=== PATIENT | male | born 1960 | race Caucasian/White ===

== ENCOUNTER → 2018-06-13 11:15 | Outpatient (CLI) | payer OTHER, SELFPAY ==
[2018-06-14 11:24] LABS: Lyme Ab w Rflx to Lyme Confirm Negative
[2018-06-15 00:25] LABS: Anaplasma phagocytophilum Negative (Negative); B. miyamotoi PCR Negative (Negative); Babesia divergens/MO-1 Negative (Negative); Babesia duncani Negative (Negative); Babesia microti Negative (Negative); Ehrlichia chaffeensis Negative (Negative); Ehrlichia ewingii/canis Negative (Negative); Ehrlichia muris eauclairensis Negative (Negative)
== END ==
PROVIDERS: PCP Nurse Practitioner; Visit Provider Nurse Practitioner
DX: M25.50 Pain in unspecified joint (principal); W57.XXXA Bitten or stung by nonvenomous insect and other nonvenomous arthropods, initial encounter; T14.8XXA Other injury of unspecified body region, initial encounter
CPT/HCPCS: 36415; 86618; 87798

== ENCOUNTER 2018-08-16 11:28 | Outpatient (CLI) | payer OTHER, SELFPAY ==
[2018-08-16 13:01] LABS: Cholesterol 245 mg/dL (50-200); HDL Cholesterol 68 mg/dL (40-60); LDL CHOLESTEROL 161 mg/dL (<100); Triglyceride 202 mg/dL (30-150)
[2018-08-17 10:05] LABS: PSA, Screening 10.4 ng/ml (0-3.5)
== END 2018-08-16 11:48 ==
PROVIDERS: PCP Nurse Practitioner; Visit Provider Nurse Practitioner
DX: I10 Essential (primary) hypertension (principal); R97.20 Elevated prostate specific antigen [PSA]; Z12.5 Encounter for screening for malignant neoplasm of prostate
CPT/HCPCS: 36415; 80061; 83721; 84153

== ENCOUNTER 2018-12-05 02:19 | Outpatient (CLI) | payer OTHER, SELFPAY ==
[2018-12-06 08:47] LABS: PSA, Screening 14.7 ng/ml (0-3.5)
== END 2018-12-05 02:39 ==
PROVIDERS: PCP Nurse Practitioner; Visit Provider Nurse Practitioner Gerontology
DX: R97.20 Elevated prostate specific antigen [PSA] (principal)
CPT/HCPCS: 36415; 84153

== ENCOUNTER 2018-12-25 01:30 | Outpatient (CLI) | payer OTHER, SELFPAY ==
--- NOTE | 2018-12-25 06:44 | DI.US_ITS ---
SYMPTOM/DIAGNOSIS: ELEVATED PSA, RISING PSA, R97.20 ULTRASOUND GUIDED PROSTATE BIOPSY: Sonography was utilized by Dr. Ramos during the performance of an ultrasound guided transrectal prostate biopsy. Please refer to the procedure report for complete details.
--- NOTE | 2018-12-25 08:20 | PROST_PTH ---
PATIENT: Joseph Lr LOC: [facility] U#:[id number] AGE/SX: 58/M ROOM: RE12/25/[address]: Sarahi Branham DNP : 1960 BED: DIS: 12/25/2018 SPEC #: [id number] RECD: 12/25/18 12:56 STATUS: MILTON Sudheer #: [id number] RUBIN: 12/25/18 08:[address]: Sarahi Branham DEPT: Surgical Specimen RECD BY: Kelly Lobato ENTERED: 12/25/18 12:58 SP TYPE: PROST OTHR DR: Fidelina Woo APRN Tissues: 1 - PROSTATE NEEDLE BIOPSY 2 - PROSTATE NEEDLE BIOPSY 3 - PROSTATE NEEDLE BIOPSY 4 - PROSTATE NEEDLE BIOPSY 5 - PROSTATE NEEDLE BIOPSY 6 - PROSTATE NEEDLE BIOPSY 7 - PROSTATE NEEDLE BIOPSY 8 - PROSTATE NEEDLE BIOPSY 9 - PROSTATE NEEDLE BIOPSY 10 - PROSTATE NEEDLE BIOPSY 11 - PROSTATE NEEDLE BIOPSY 12 - PROSTATE NEEDLE BIOPSY Procedures: GROSS AND MICRO LEVEL 4 Comments: [id number]
--- NOTE | 2018-12-25 10:13 | ROE_ITS ---
PROCEDURE NOTE DATE OF PROCEDURE December 25, 2018 PREPROCEDURE DIAGNOSIS Elevated PSA. POSTPROCEDURE DIAGNOSES Elevated PSA with pathology pending. PROCEDURE Transrectal ultrasound of the prostate with ultrasound guided biopsies. SURGEON Everardo Ramos M.D. ANESTHESIA Local. COMPLICATIONS None. ESTIMATED BLOOD LOSS Minimal. HISTORY OF PRESENT ILLNESS This is a 58-year-old gentleman who has been identified as having an increased PSA level. His digital rectal exam is normal. His PSA most recently is 14.7 ng/ml. He presents now for ultrasound guided bi opsy of the prostate. The patient was brought to the radiology suite on 12/25/2018. He had been given a preprocedural antibi otic and mechanical bowel prep. He was placed in the left lateral position. Transrectal imaging of the prostate was performed. The prostate was imaged in transverse and longitud inal planes. The prostate was diffusely enlarged with a volume measurement of 88 cc. A periprostatic nerve block was then performed. The prostate was imaged in transverse and longitudina l planes. No discrete hypoechoic areas were seen in the peripheral zone. A total of 12 laterally dire cted biopsies were taken and sent to pathology for permanent section. Each of the biopsies was labele d based on location. The patient tolerated this procedure well with no complications. He will followup in one to two weeks for pathology results. CC: Fidelina Woo NP
== END 2018-12-25 01:50 ==
PROVIDERS: PCP Nurse Practitioner; Visit Provider Nurse Practitioner Gerontology
DX: N41.0 Acute prostatitis (principal); N41.1 Chronic prostatitis; N42.89 Other specified disorders of prostate; R97.20 Elevated prostate specific antigen [PSA]
CPT/HCPCS: 55700; 76942; 88305

== ENCOUNTER 2019-06-26 07:08 | Outpatient (CLI) | payer OTHER, SELFPAY ==
[2019-06-26 09:29] LABS: ALT 31 U/L (12-78); AST 25 U/L (15-37); Albumin 4.1 g/dL (3.4-5.0); Alkaline Phosphatase 68 U/L (46-116); BUN 18 mg/dL (7-18); Bilirubin, Total 0.5 mg/dL (0.2-1.0); CREATININE 1.07 mg/dL (0.70-1.30); Calcium 9.2 mg/dL (8.5-10.1); Calculated LDL 130 mg/dL; Chloride 104 mmol/L (98-107); Cholesterol 217 mg/dL (50-200); Glucose 101 mg/dL (70-100); HDL Cholesterol 75 mg/dL (40-60); Potassium 4.3 mmol/L (3.5-5.1); Sodium 139 mmol/L (136-145); Total Protein 7.1 g/dL (6.4-8.2); Triglyceride 64 mg/dL (30-150)
[2019-06-27 09:59] LABS: PSA, Diagnostic 12.6 ng/ml (0-3.5)
== END 2019-06-26 07:28 ==
PROVIDERS: Urology; PCP Nurse Practitioner; Visit Provider Nurse Practitioner
DX: I10 Essential (primary) hypertension (principal); E78.00 Pure hypercholesterolemia, unspecified; R97.20 Elevated prostate specific antigen [PSA]; N42.89 Other specified disorders of prostate
CPT/HCPCS: 36415; 80053; 80061; 83721; 84153

== ENCOUNTER 2019-09-10 01:48 | Outpatient (CLI) | payer OTHER, SELFPAY ==
--- NOTE | 2019-09-10 09:00 | DI.MRI_ITS ---
EXAM: MR C SPINE T SPINE WO CLINICAL HISTORY: Pain, Hx C6-7 disc herniation, neck pain, back pain, M54.2, M54.9. TECHNIQUE: Multiplanar multisequence MRI was performed. COMPARISON: MRI - CERVICAL SPINE WO CONT from 01/01/2009 FINDINGS: MRI of the cervical spine There is normal signal in the spinal cord. No evidence of tonsillar ectopia is present. There is a small to moderate size right paracentral disc herniation at C6-C7. There is mild narrowing of the ce ntral spinal canal. There is moderate narrowing of the right neural foramen. There are degenerative changes seen at the uncovertebral joint on the left. This causes mild narrowing of the left neural foramen. There is mild prominence of the C5-6 osteophyte disc complex. No central spinal canal sten osis is seen. There are degenerative changes of the uncovertebral joints bilaterally. This causes m ild narrowing of the neural foramen bilaterally. The remaining disc levels are unremarkable. Marrow signal is within normal limits. MRI of the thoracic spine There is normal signal in the spinal cord. No focal disc herniation, central spinal canal, or neural foraminal stenosis is seen in the thoracic spine. In a few vertebral bodies there are foci of hyper intense T1 and T2 signal. These likely reflect hemangioma or focal fat. IMPRESSION: 1. Small to moderate size right paracentral disc herniation at C6-C7. This in conjunction with the d egenerative changes causes mild narrowing of the central spinal canal and moderate right neural mery inal narrowing. 2. Degenerative changes in the cervical spine at C5-6 and C6-C7. 3. Unremarkable MRI of the thoracic spine.
== END 2019-09-10 02:08 ==
PROVIDERS: PCP Nurse Practitioner; Visit Provider Nurse Practitioner
DX: M54.2 Cervicalgia (principal); M50.223 Other cervical disc displacement at C6-C7 level; M47.812 Spondylosis without myelopathy or radiculopathy, cervical region; M54.6 Pain in thoracic spine
CPT/HCPCS: 72141; 72146

== ENCOUNTER 2019-10-08 09:33 | Day surgery (SDC) | payer OTHER, SELFPAY ==
[2019-10-08 09:51] VITALS: BP 130/75; PULSE 79; RESP 18; TEMP 36.5; O2SAT 97
[2019-10-08] MEDS: Sodium Bicarbonate 50 MEQ/50 ML VIAL (11:15)
[2019-10-08] MEDS: Lidocaine 1% Pres-Free 5 ML VIAL (11:15)
--- NOTE | 2019-10-08 11:20 | SOFT_PTH ---
PATIENT: Joseph Lr LOC: [facility] U#:[id number] AGE/SX: 58/M ROOM: RE10/08/[address]: Camilo Urias MD : 1960 BED: DIS: 10/08/2019 SPEC #: [id number] RECD: 10/08/19 12:51 STATUS: MILTON RESudheer #: [id number] RUBIN: 10/08/19 11:[address]: Camilo Urias DEPT: Surgical Specimen RECD BY: Kelly Lobato ENTERED: 10/08/19 12:52 SP TYPE: SOFT OTHR DR: Fidelina Woo APRN Tissues: 1 - SOFT TISSUE MISC (INC. LIPOMA) Procedures: GROSS AND MICRO LEVEL 4 Comments: [id number]
--- NOTE | 2019-10-08 11:25 | W.PM.DSUDISC ---
Discharge Plan Disposition Patient Disposition: HOME Condition: Good Discharge Details Reason For Visit: left thumb cyst Attending Provider: Camilo Urias Primary Care Provider: Fidelina Woo Home Meds and New Rx's Prescriptions: New acetaminophen 500 mg tablet 500 mg PO Q6H PRN (Reason: pain) Qty: 60 RF: 2 ibuprofen 600 mg tablet 600 mg PO TID PRN (Reason: pain) Qty: 60 RF: 2 Continued aspirin 325 mg tablet 325 mg PO PRN PRNRF: 0 lisinopril 10 mg tablet 10 mg PO DAILY Qty: 90 RF: 3 methylprednisolone [Medrol (Naresh)] 4 mg tablets,dose pack See Rx Instructions .Route .COMPLEX Qty: 21 RF: 0 cyclobenzaprine 10 mg tablet 10 mg PO TID PRN (Reason: muscle spasm) Qty: 40 RF: 0 naproxen sodium 220 MG tablet 440 mg PO PRN RF: 0 CALMS FORTE 3 tab PO HS RF: 0 restful legs 5 tab PO HS RF: 0 simethicone [Gas Relief Ultra Strength] 180 MG capsule 180 mg PO TID PRNRF: 0 Discharge Instructions Additional Instructions: Cyst Discharge Instructions Activity: You should keep the hand/thumb elevated as much as possible for the first few days. You may use the other fingers as tolerated but avoid trying to do too much too soon. You may perform light activities with the dressing in place. Dressing: You should keep the dressing on for 48 hours. Keep dressing dry and clean. After 48 hours you may remove the dressing and cover the incision with a band-aide. Medications: - You should take Tylenol and Ibuprofen for baseline pain control. - You may apply ice over the thumb. Follow-up: 10-14 days Referrals: Camilo Urias MD [ [facility] STAFF PHYSICIAN] - Activity:: Activity as Tolerated Remove Dressings/Wound Care:: 48 hours Shower/Bathe:: 48 hours Diet:: As Tolerated Discharge Orders Discharge Orders: Discharge Order (Routine); Ordered 10/08/19 Ordered By: Najma Sams DS: Diagnosis Discharge Diagnosis (1) Epidermal inclusion cyst: Status: Acute
--- NOTE | 2019-10-08 14:39 | W.PM.OP ---
Date of service: 10/08/19 Time of Service: 14:39 Operative Note Operative Note DATE OF PROCEDURE: 10/08/19 PRE-OP DIAGNOSIS: Left Thenar Mass POST-OP DIAGNOSIS: same PROCEDURE: Excisional Biopsy of Left Thenar Mass SURGEON: Camilo Urias ANESTHESIA: local PATHOLOGY: other (Mass from left thenar region, hemorrhagic cyst appearance) COMPLICATIONS: None Patient was transported to: same day Patient's condition: stable Indications: I have seen Jim in clinic for symptoms of a mass of the left thenar region. The mass has been present for a few months and causes pain with any direct pressure. The symptoms had not responded to conservative measures. I discussed excisional biopsy with the patient. I reviewed the risks of the procedure to include, but not limited to, bleeding, infection, pain, stiffness, damage to nerves or vessels, need for repeat procedures, recurrence. Despite these risks, the patient elected to proceed. Findings: There was a cystic structure superficially located in the thenar region. It had a easily identified layer and was hemorrhagic in appearance. Procedure Description: Jim was greeted in the preoperative holding area where the correct side was identified and marked. The consent was reviewed with the patient and signed. All questions were answered. He was taken back to the operating room. The patient was placed into the supine position on the operating room table with the left arm on an arm board. All bony prominences were well padded. No prophylactic antibiotics were administered since this was a clean, elective hand surgical case. The left arm was then prepped with Chloraprep and draped in a standard fashion with stockinette and extremity drape. A timeout to confirm correct identity, side and site, procedure, allergies, anesthesia, and medical concerns was performed. The surgical site was marked as a longitudinal incision directly over the mass in the thenar region in line with the natural skin creases. The proposed surgical site was anesthetized with buffered 1% lidocaine with epinephrine. After this had a chance to set up, a 1-1/2 cm incision was made overlying the mass. Dissection was carried down through the skin only. Blunt dissection was performed with tenotomy scissors. With very minimal dissection the mass was encountered. It had a purplish hemorrhagic appearance. There is a clear boundary between it and the surrounding tissue. Using a nontoothed forceps I was able to grab its capsule and dissected free from surrounding soft tissue. The cyst was extracted and measured about 5 mm x 4 mm. It was firm with a clear capsular layer and a hemorrhagic internal appearance. This was sent the pathology. The wound was then irrigated and the skin was closed with a 4-0 Nylon. This was dressed with gauze and a Conform dressing. The patient tolerated the procedure well and was returned to the Same Day Surgery area in a stable condition suffering no known complication.
== END 2019-10-08 11:48 | disposition home or self-care (01) ==
PROVIDERS: PCP Nurse Practitioner; Visit Provider Student in an Organized Health Care Education/Training Program
PROC: (CPT 26160; principal; 2019-10-08 10:30)
DX: L72.8 Other follicular cysts of the skin and subcutaneous tissue (principal)
CPT/HCPCS: 11422; 88305; 88304

== ENCOUNTER 2020-01-13 09:12 | Outpatient (CLI) | payer OTHER, SELFPAY ==
[2020-01-14 11:00] LABS: PSA, Diagnostic 10.7 ng/mL (0.0-3.5)
== END 2020-01-13 09:32 ==
PROVIDERS: PCP Nurse Practitioner Adult Health; Visit Provider Urology
DX: R97.20 Elevated prostate specific antigen [PSA] (principal)
CPT/HCPCS: 36415; 84153

== ENCOUNTER 2020-08-14 03:15 | Outpatient (CLI) | payer OTHER, SELFPAY ==
[2020-08-16 13:08] LABS: Patient Race White; SARS-CoV-2 RNA Undetected (Undetected); SARS-CoV-2 Specimen Source Nasopharynx
== END 2020-08-14 03:35 ==
PROVIDERS: PCP Nurse Practitioner Adult Health; Visit Provider Internal Medicine
DX: Z11.59 Encounter for screening for other viral diseases (principal)
CPT/HCPCS: U0003

== ENCOUNTER 2020-09-10 02:34 | Outpatient (CLI) | payer OTHER, SELFPAY ==
[2020-09-10 12:30] LABS: ALT 35 U/L (16-63); AST 26 U/L (15-37); Albumin 4.3 g/dL (3.4-5.0); Alkaline Phosphatase 45 U/L (46-116); Anion Gap 6.1 mmol/L (3-11); BUN 17 mg/dL (7-18); Bilirubin, Total 0.7 mg/dL (0.2-1.0); CO2 29.9 mmol/L (21.0-32.0); CREATININE 1.13 mg/dL (0.70-1.30); Calcium 9.3 mg/dL (8.5-10.1); Calculated LDL 113 mg/dL (<100); Chloride 100 mmol/L (98-107); Cholesterol 224 mg/dL (<200); Glucose 89 mg/dL (74-106); HDL Cholesterol 95 mg/dL (40-60); Potassium 4.1 mmol/L (3.5-5.1); Sodium 136 mmol/L (136-145); Total Protein 7.3 g/dL (6.4-8.2); Triglyceride 82 mg/dL (<150)
[2020-09-16 16:25] LABS: PSA, Diagnostic 16.2 ng/ml (0-3.5)
== END 2020-09-10 02:54 ==
PROVIDERS: Nurse Practitioner; PCP Nurse Practitioner Adult Health; Visit Provider Urology
DX: I10 Essential (primary) hypertension (principal); E78.00 Pure hypercholesterolemia, unspecified; R97.20 Elevated prostate specific antigen [PSA]
CPT/HCPCS: 36415; 80053; 80061; 84153

== ENCOUNTER 2021-02-12 11:07 | Outpatient (CLI) | payer OTHER, SELFPAY ==
--- NOTE | 2021-02-12 11:00 | DI.RAD_ITS ---
EXAM: XR KNEE RT 3V AP,LAT,TACHO CLINICAL HISTORY: eval R anterior knee pain TECHNIQUE: COMPARISON: No exams were available for comparison FINDINGS: Three views were obtained. On the lateral view, there is apparent mild soft tissue swelling anterior ly and there is possible small knee joint effusion. Bones of the knee are unremarkable in appearance. No evidence of a fracture or dislocation. IMPRESSION: RADIATION DOSE DELIVERED: Total DLP
== END 2021-02-12 11:08 | disposition home or self-care (01) ==
LOC: DIORS 11:07
PROVIDERS: PCP Nurse Practitioner Adult Health; Referring Provider Nurse Practitioner Adult Health; Visit Provider Student in an Organized Health Care Education/Training Program
DX: M25.561 Pain in right knee (principal)
CPT/HCPCS: 73562

== ENCOUNTER 2021-03-29 03:31 | Outpatient (CLI) | payer OTHER, SELFPAY ==
[2021-03-29 11:26] LABS: ALT 37 U/L (16-63); AST 30 U/L (15-37); Albumin 4.1 g/dL (3.4-5.0); Alkaline Phosphatase 59 U/L (46-116); Anion Gap 9.4 mmol/L (3-11); BUN 17 mg/dL (7-18); Bilirubin, Total 0.5 mg/dL (0.2-1.0); CO2 29.6 mmol/L (21.0-32.0); CREATININE 1.2 mg/dL (0.70-1.30); Calcium 9.5 mg/dL (8.5-10.1); Calculated LDL 136 mg/dL (<100); Chloride 100 mmol/L (98-107); Cholesterol 266 mg/dL (<200); Glucose 136 mg/dL (74-106); HDL Cholesterol 90 mg/dL (40-60); Potassium 3.9 mmol/L (3.5-5.1); Sodium 139 mmol/L (136-145); Total Protein 7.5 g/dL (6.4-8.2); Triglyceride 203 mg/dL (<150)
[2021-03-29 18:02] LABS: PSA, Diagnostic 15.8 ng/mL (0.0-3.5)
== END 2021-03-29 03:32 | disposition home or self-care (01) ==
LOC: LBO 03:31
PROVIDERS: PCP Nurse Practitioner Adult Health; Visit Provider Urology
DX: I10 Essential (primary) hypertension (principal); E78.00 Pure hypercholesterolemia, unspecified; R97.20 Elevated prostate specific antigen [PSA]
CPT/HCPCS: 36415; 80053; 80061; 84153

== ENCOUNTER 2021-04-29 02:01 | Outpatient (CLI) | payer OTHER, SELFPAY ==
[2021-04-29 08:42] LABS: Anion Gap 8.6 mmol/L (3-11); BUN 17 mg/dL (7-18); CO2 29.4 mmol/L (21.0-32.0); CREATININE 1.1 mg/dL (0.70-1.30); Calcium 9.6 mg/dL (8.5-10.1); Calculated LDL 143 mg/dL (<100); Chloride 103 mmol/L (98-107); Cholesterol 254 mg/dL (<200); Glucose 113 mg/dL (74-106); HDL Cholesterol 103 mg/dL (40-60); Potassium 4.6 mmol/L (3.5-5.1); Sodium 141 mmol/L (136-145); Triglyceride 43 mg/dL (<150)
[2021-04-29 18:06] LABS: PSA, Diagnostic 12.4 ng/mL (0.0-3.5)
== END 2021-04-29 02:02 | disposition home or self-care (01) ==
LOC: LBO 02:01
PROVIDERS: Urology; PCP Nurse Practitioner Adult Health; Visit Provider Nurse Practitioner Adult Health
DX: E78.00 Pure hypercholesterolemia, unspecified (principal); Z13.1 Encounter for screening for diabetes mellitus; R97.20 Elevated prostate specific antigen [PSA]
CPT/HCPCS: 36415; 80048; 80061; 84153

== ENCOUNTER 2021-07-30 03:28 | Outpatient (CLI) | payer OTHER, SELFPAY ==
--- NOTE | 2021-07-30 07:30 | DI.MRI_ITS ---
Exam(s) MR IAC BRAIN WO/W EXAM: MR IAC BRAIN WO/W CLINICAL HISTORY: right ear paresthesia/tinnitus,otalgia,bilat sn hearing loss,h92.01,h90.3, TECHNIQUE: Multiplanar multisequence MRI of the brain was performed. Both noninfused and contrast i nfused sequences were performed. IAC protocol was utilized IV Contrast injected was 15 cc Dotarem. COMPARISON: No exams were available for comparison FINDINGS: CEREBRAL PARENCHYMA: No evidence of intracranial hemorrhage, mass effect nor shift of midline structu re. No extraaxial fluid collections. Ventricles are not enlarged nor shifted. There is no significant focal signal abnormality in the cerebellar hemispheres nor within the elinor, m idbrain, and thalami. There is no abnormal signal abnormality in the periventricular white matter. There are no ring enhancing lesions in the brain. There is no abnormal meningeal enhancement. INTERNAL AUDITORY CANALS: There is no evidence of mass in the cerebellopontine angles nor evidence of intra canalicular mass. The 7th and 8th cranial nerves appear unremarkable. PITUITARY GLAND: No abnormality evident. FLOW VOIDS: The expected flow void are noted. No evidence of obvious aneurysm nor obvious vascular ma lformation. PARANASAL SINUSES: The visualized paranasal sinuses appear unremarkable. ORBITS: No obvious abnormal findings. IMPRESSION: 1. No significant intracranial findings on this MRI scan of the brain. 2. No abnormal enhancing intracranial finding. 3. No evidence of mass in the cerebellopontine angles and no evidence of intra canalicular acoustic neuroma-schwannoma. DATA REPOSITORY:
[2021-07-30 14:19] LABS: CREATININE 1.2 mg/dL (0.70-1.30)
[2021-07-30] MEDS: Gadoterate meglumine 20 ML VIAL 15 ML IVP (14:34)
[2021-07-30] MEDS: Normal Saline Flush 10 ML SYR IVP (14:34)
== END 2021-07-30 03:48 ==
PROVIDERS: PCP Nurse Practitioner Adult Health; Visit Provider Otolaryngology
DX: H90.3 Sensorineural hearing loss, bilateral (principal); H92.01 Otalgia, right ear; H93.11 Tinnitus, right ear
CPT/HCPCS: 70553; 82565

== ENCOUNTER 2021-08-31 02:36 | Outpatient (CLI) | payer OTHER, SELFPAY ==
[2021-08-31 07:41] LABS: Hemoglobin A1C 5.5 % (<5.7)
[2021-08-31 08:27] LABS: Anion Gap 6.4 mmol/L (3-11); BUN 16 mg/dL (7-18); CO2 30.6 mmol/L (21.0-32.0); CREATININE 1.2 mg/dL (0.70-1.30); Calcium 9.3 mg/dL (8.5-10.1); Chloride 104 mmol/L (98-107); Glucose 99 mg/dL (74-106); Potassium 4.8 mmol/L (3.5-5.1); Sodium 141 mmol/L (136-145)
== END 2021-08-31 02:37 | disposition home or self-care (01) ==
LOC: LBO 02:36
PROVIDERS: PCP Nurse Practitioner Adult Health; Visit Provider Nurse Practitioner Adult Health
DX: R73.01 Impaired fasting glucose (principal)
CPT/HCPCS: 36415; 80048; 83036

== ENCOUNTER 2021-09-21 04:25 | Outpatient (CLI) | payer OTHER, SELFPAY | END 2021-09-21 04:26 | disposition home or self-care (01) | PROVIDERS: PCP Nurse Practitioner Adult Health; Visit Provider Urology | CPT/HCPCS: 36415; 80048; 80061; 83036; 84443 ==

== ENCOUNTER 2021-09-28 08:41 | Outpatient (CLI) | payer OTHER, SELFPAY ==
[2021-09-28 22:40] LABS: PSA, Diagnostic 14.7 ng/mL (0.0-3.5)
== END 2021-09-28 08:42 | disposition home or self-care (01) ==
LOC: LBO 08:41
PROVIDERS: PCP Nurse Practitioner Adult Health; Visit Provider Urology
DX: R97.20 Elevated prostate specific antigen [PSA] (principal)
CPT/HCPCS: 84153

== ENCOUNTER 2022-03-31 03:46 | Outpatient (CLI) | payer SELFPAY ==
[2022-03-31 20:44] LABS: PSA, Diagnostic 15.2 ng/mL (<=3.5)
== END 2022-03-31 03:47 | disposition home or self-care (01) ==
LOC: LBO 03:47
PROVIDERS: PCP Nurse Practitioner Adult Health; Visit Provider Urology
DX: R97.20 Elevated prostate specific antigen [PSA] (principal)
CPT/HCPCS: 36415; 84153

== ENCOUNTER 2022-06-08 13:24 | Emergency (ER) | payer SELFPAY ==
[2022-06-08] VITALS (12 sets, daily range): BP systolic 116–148; BP diastolic 70–89; PULSE 61–85; RESP 11–24; TEMP 36.4; O2SAT 97–100
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
[2022-06-08] MEDS: predniSONE 20 MG TAB 60 MG PO (14:07)
[2022-06-08] MEDS: diphenhydrAMINE Elixir 25 MG/10 ML CUP 12.5 MG PO (14:07)
== END 2022-06-08 14:41 | disposition home or self-care (01) ==
PROVIDERS: Emergency Provider Physician Assistant; PCP Nurse Practitioner Adult Health
DX: T63.441A Toxic effect of venom of bees, accidental (unintentional), initial encounter (principal); R11.2 Nausea with vomiting, unspecified; I10 Essential (primary) hypertension; Z87.891 Personal history of nicotine dependence
CPT/HCPCS: 99283; 99284; J7512

== ENCOUNTER 2022-10-10 02:56 | Outpatient (CLI) | payer SELFPAY ==
[2022-10-10 18:33] LABS: PSA, Diagnostic 24.1 ng/mL (<=4.5)
== END 2022-10-10 02:57 | disposition home or self-care (01) ==
LOC: LBO 02:56
PROVIDERS: PCP Nurse Practitioner Adult Health; Visit Provider Urology
DX: I10 Essential (primary) hypertension (principal); R73.01 Impaired fasting glucose; E78.00 Pure hypercholesterolemia, unspecified; R97.20 Elevated prostate specific antigen [PSA]
CPT/HCPCS: 36415; 80048; 80061; 83036; 84153

== ENCOUNTER 2023-02-02 12:34 | Outpatient (CLI) | payer BC, SELFPAY ==
[2023-02-02 08:08] LABS: Hemoglobin A1C 5.4 % (<5.7)
[2023-02-02 08:19] LABS: Vitamin D 25 Total 29.1 ng/mL (30-100)
[2023-02-02 08:31] LABS: Anion Gap 5.3 mmol/L (3-11); BUN 18 mg/dL (7-18); CO2 30.7 mmol/L (21.0-32.0); CREATININE 1.2 mg/dL (0.70-1.30); Calcium 9.4 mg/dL (8.5-10.1); Chloride 104 mmol/L (98-107); Estimated GFR 69.23 (mL/min/1.73m2); Folate 6.9 ng/mL (8.6-20.0); Glucose 104 mg/dL (74-106); Potassium 3.8 mmol/L (3.5-5.1); Sodium 140 mmol/L (136-145); Vitamin B12 277 pg/mL (193-986)
== END 2023-02-02 12:35 | disposition home or self-care (01) ==
LOC: LBO 12:34
PROVIDERS: PCP Nurse Practitioner Adult Health; Visit Provider Nurse Practitioner Adult Health
DX: I10 Essential (primary) hypertension (principal); Z85.828 Personal history of other malignant neoplasm of skin
CPT/HCPCS: 36415; 80048; 82306; 82607; 82746; 83036

== ENCOUNTER 2023-07-24 10:30 | Outpatient (REF) | payer BC, SELFPAY | END 2023-07-24 10:31 | disposition home or self-care (01) | LOC: LBN 10:30 | PROVIDERS: Visit Provider Nurse Practitioner Family | DX: N13.8 Other obstructive and reflux uropathy (principal); Z01.818 Encounter for other preprocedural examination | CPT/HCPCS: 87086 ==

== ENCOUNTER → 2023-10-12 01:13 | Outpatient (CLI) | payer BC, SELFPAY ==
--- NOTE | 2023-10-12 | DI.MRI_ITS ---
Exam(s) MR BRAIN WO/W EXAM: MR BRAIN WO/W CLINICAL HISTORY: SPACE OCCUPYING LESION, DEMYELINATING DISEASE, R41.82 TECHNIQUE: Multiplanar multisequence MRI of the brain was performed. Both noninfused and contrast i nfused sequences were performed. IV Contrast injected was 15 cc Dotarem. COMPARISON: MR MR IAC BRAIN WO/W from 07/30/2021 FINDINGS: CEREBRAL PARENCHYMA: No evidence of intracranial hemorrhage, mass effect nor shift of midline structu re. No extraaxial fluid collections. Ventricles are not enlarged nor shifted. There is no significant focal signal abnormality in the cerebellar hemispheres nor within the elinor, m idbrain, and thalami. There is no abnormal signal abnormality in the periventricular white matter. DWI: No areas of restricted diffusion to suggest acute ischemic event. SWI: No microhemorrhages evident. There are no ring enhancing lesions in the brain. There is no abnormal meningeal enhancement. IAC's: There are no masses in the cerebellopontine angles and there is no evidence of intra canalicul ar enhancing lesion/acoustic schwannoma-neuroma. PITUITARY GLAND: No mass nor parasellar abnormality. No obvious abnormality in the cavernous sinuses. FLOW VOIDS: The expected flow void are noted. No evidence of obvious aneurysm nor obvious vascular ma lformation. PARANASAL SINUSES: The visualized paranasal sinuses appear unremarkable. ORBITS: No obvious abnormal findings. IMPRESSION: 1. No significant intracranial findings on this MRI scan of the brain. 2. No abnormal enhancing intracranial findings. There are no ring enhancing lesions in the brain and there is no abnormal meningeal enhancement. 3. No evidence of space-occupying lesions nor demyelinating disease, as per request. DATA REPOSITORY:
[2023-10-12 11:02] LABS: CREATININE 1.3 mg/dL (0.70-1.30)
[2023-10-12] MEDS: Normal Saline Flush 10 ML SYR IVP (11:08)
[2023-10-12] MEDS: Gadoterate meglumine 20 ML SYRINGE 15 ML IVP (11:09)
== END ==
PROVIDERS: Visit Provider Neuromusculoskeletal Medicine & OMM
DX: R41.82 Altered mental status, unspecified (principal)
CPT/HCPCS: 70553; 82565

== ENCOUNTER 2024-03-05 05:00 | Outpatient (CLI) | payer BC, SELFPAY ==
[2024-03-05 17:57] LABS: PSA, Diagnostic 2.7 ng/mL (<=4.5)
== END 2024-03-05 05:01 | disposition home or self-care (01) ==
LOC: LBO 05:00
PROVIDERS: Visit Provider Urology
DX: N40.1 Benign prostatic hyperplasia with lower urinary tract symptoms (principal); R97.20 Elevated prostate specific antigen [PSA]
CPT/HCPCS: 36415; 84153

== ENCOUNTER 2024-05-27 06:30 | Day surgery (SDC) | payer SELFPAY ==
[2024-05-27] VITALS (35 sets, daily range): BP systolic 101–137; BP diastolic 62–94; PULSE 41–72; RESP 11–25; TEMP 36.2–36.9; O2SAT 92–98; BMI 23.0
[2024-05-27] MEDS: Lactated Ringers 1,000 ML 80 ML IV (06:53)
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
[2024-05-27] MEDS: ceFAZolin 2 GM/50 ML BAG IVPB (07:33)
[2024-05-27] MEDS: Bupivacaine 0.25% Pres-Free 30 ML VIAL (07:57)
--- NOTE | 2024-05-27 08:24 | W.PM.DSUDISC ---
Date of service: 05/27/24 Time of Service: 08:24 Discharge Plan Disposition Patient Disposition: Home Discharge Details Reason For Visit: hydrocelectomy Attending Provider: Everardo Ramos Primary Care Provider: Unknown,Unknown Home Meds and New Rx's Prescriptions: No Action lisinopril 5 mg tablet 5 mg PO DAILY Qty: 90 3RF Rx Instructions: BP trazodone 100 mg tablet 100 mg PO DAILY citalopram 30 mg capsule 30 mg PO DAILY lorazepam [Ativan] 2 mg tablet 5 mg PO QHS PRN Patient Comments: 5 mg during day PRN , 10 mg QHS PRN naproxen sodium 220 MG tablet 440 mg PO PRN tadalafil [Cialis] 5 mg tablet 5 mg PO DAILY PRN (Reason: urination) Qty: 90 4RF Rx Instructions: do not take with nitroglycerin tramadol 50 mg tablet 50 mg PO Q6H PRN (Reason: pain) Qty: 30 0RF Rx Instructions: may take along with NSAIDS/Tylenol simethicone [Gas Relief Ultra Strength] 180 MG capsule 180 mg PO TID PRN Patient Comments: 02/12/15 - taking with every meal at this time. tori Rx Instructions: usiing prn 06/25/15 cgc CBD 50 mg liquid 0.5 ml PO DAILY Discharge Instructions Additional Instructions: wear tight, suppotive undergarments for 48 hours then as needed ice pack to scrotum while awake (bag of frozen peas works well) for 48 hours then as needed OK to shower and remove dressing in AM 7/16 followup 1 to 2 weeks for wound check Referrals: Everardo Ramos MD [ [facility] STAFF PHYSICIAN] - (1 to 2 weeks for wound check) Discharge Orders Discharge Orders: Discharge Order (Routine); Ordered 05/27/24 Ordered By: Everardo Ramos DS: Diagnosis Discharge Diagnosis (1) Bilateral hydrocele: Status: Acute
--- NOTE | 2024-05-27 08:28 | ROE_ITS ---
Date of service: 05/27/24 Time of Service: 08:29 Operative Note Operative Note DATE OF PROCEDURE: 05/27/24 PRE-OP DIAGNOSIS: Right hydrocele POST-OP DIAGNOSIS: same PROCEDURE: Right hydrocelectomy SURGEON: Everardo Ramos ANESTHESIA TYPE: Local By Surgeon and General LMA/ETT Refer to Anesthesia Record ESTIMATED BLOOD LOSS: 5 PATHOLOGY: none sent COMPLICATIONS: None Patient was transported to: PACU Patient's condition: stable Implants: none Indications: This is a 63-year-old gentleman who has a history of bilateral hydroceles. The left hydrocele is completely asymptomatic but the right hydrocele is bothersome. He has had improvement with aspiration procedures along with injections into the ilioinguinal nerve. He presents now for hydrocelectomy Findings: Thickening of the epididymis and spermatic cord Procedure Description: The patient was given preoperative antibiotics. He was brought to the operating room on 05/27/2024. After successful induction of general anesthesia, he was placed in the supine position. His genitalia was prepped and draped. A scrotal field block was performed using quarter percent Marcaine without epinephrine. A transverse scrotal incision was made and the dartos muscle beneath the incision was opened using the Bovie. The testis, still within the hydrocele sac, was then dissected free from the surrounding scrotal tissue and the testis was delivered into the incision. The gubernaculum was divided using sharp and blunt dissection. The outer aspect of the hydrocele sac was then further dissected. The sac was opened anteriorly and a moderate amount of yellowish fluid was drained. A spermatic cord block was performed using quarter percent Marcaine without epinephrine. The hydrocele sac was then everted behind the testis and the edges of the hydr ocele sac were reapproximated using a running segment of 3-0 chromic suture. Any bleeding points along the hydrocele sac edge were cauterized. The testis was delivered back within the right hemiscrotum. The dartos muscle was reapproximated with a running 3-0 chromic suture. The skin was closed with subcuticular 4-0 Vicryl suture. Dermabond was then applied to the wound. A fluff dressing was applied followed by a scrotal support.
--- NOTE | 2024-05-27 09:17 | W.ANESPOSTOP ---
Postoperative Evaluation Date, Time and Location Date Performed: 05/27/24 Time Performed: 09:17 Patient Location: PACU Vital Signs Most Recent Imported Vital Signs: Most Recent Vital Signs Temp Pulse Resp BP Pulse Ox 36.8 C 52 L 12 126/82 93 05/27/24 09:15 05/27/24 09:15 05/27/24 09:16 05/27/24 09:15 05/27/24 09:16 Pain Score Most Recent Pain Score: Most Recent Pain Score Pain Level 0 05/27/24 09:07 Assessment Mental Status: Awake (Alert & Oriented to Patient Baseline) Airway and Respiratory Function: Patent airway with normal (patient baseline) respiratory exam Cardiovascular Function: Hemodynamically Stable Hydration Status: Adequately Hydrated Nausea & Vomiting: No Nausea or Vomiting Pain: Pt. Denies Any Pain Peripheral Nerve Block: Patient did not receive a nerve block
== END 2024-05-27 10:57 | disposition home or self-care (01) ==
PROVIDERS: Visit Provider Urology
PROC: (CPT 55040; principal; 2024-05-27 07:30)
DX: N43.3 Hydrocele, unspecified (principal); I10 Essential (primary) hypertension; N40.1 Benign prostatic hyperplasia with lower urinary tract symptoms
CPT/HCPCS: 55040; J0665; J0690; J1100; J1885; J2001; J2405; J2704

== ENCOUNTER 2025-02-21 00:55 | Outpatient (CLI) | payer SELFPAY | END 2025-02-21 00:56 | disposition home or self-care (01) | PROVIDERS: Visit Provider Urology | DX: R97.20 Elevated prostate specific antigen [PSA] (principal) | CPT/HCPCS: 36415; 84153 ==

== ENCOUNTER 2025-07-28 07:22 | Day surgery (SDC) | payer SELFPAY ==
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
[2025-07-28 07:29] VITALS: BMI 22.8
[2025-07-28 07:30] VITALS: BP 119/79; PULSE 65; RESP 16; TEMP 36.5; O2SAT 99
[2025-07-28] MEDS: Lactated Ringers 1,000 ML 80 ML IV (08:05)
--- NOTE | 2025-07-28 09:06 | W.PM.DSUDISC ---
Date of service: 07/28/25 Discharge Plan Disposition Patient Disposition: Home Discharge Details Attending Provider: Kristin Langley Primary Care Provider: Nakita Richter Recommendations for Follow Up Recommended tests to be ordered by follow up provider: Screening colonoscopy due in 10 years Home Meds and New Rx's Prescriptions: Continued lisinopril 5 mg tablet 5 mg PO DAILY Qty: 90 3RF Rx Instructions: BP aripiprazole [Abilify] 2 mg tablet 2 mg PO HS ketamine 10 mg/mL solution 45 mg PO ONCE Rx Instructions: buccally dissolves trazodone 100 mg tablet 100 mg PO DAILY lorazepam [Ativan] 2 mg tablet 5 mg PO QHS PRN Patient Comments: 5 mg during day PRN , 10 mg QHS PRN naproxen sodium 220 MG tablet 440 mg PO PRN simethicone [Gas Relief Ultra Strength] 180 MG capsule 180 mg PO TID PRN Patient Comments: 02/12/15 - taking with every meal at this time. tori Rx Instructions: usiing prn 06/25/15 cgc CBD 50 mg liquid 0.5 ml PO DAILY famotidine 20 mg tablet 20 mg PO DAILY tadalafil [Cialis] 5 mg tablet 5 mg PO DAILY Rx Instructions: do not take with nitroglycerin Discharge Instructions Additional Instructions: Normal colonoscopy. Next screening colonoscopy due in 10 years. Take a fiber supplement for diverticulosis. This helps prevent diverticulitis. Activity:: Activity as Tolerated Diet:: As Tolerated DS: Diagnosis Discharge Diagnosis (1) Screening for colorectal cancer: Status: Acute (2) Diverticulosis of sigmoid colon: Status: Acute
[2025-07-28 09:08] VITALS: BP 102/65; PULSE 56; RESP 16; TEMP 36.5; O2SAT 97
--- NOTE | 2025-07-28 09:08 | COLE_ITS ---
Date of service: 07/28/25 Time of Service: 09:08 Colonoscopy Report Pre-op diagnosis general: Screening for colorectal cancer Post-op diagnosis procedure note: same Procedure: Colonoscopy Surgeon: Kristin Langley Anesthesia Type: General:No Airway Estimated blood loss (mL): 0 Pathology: none sent Complications: None Indications: screening for colorectal cancer Prep: Miralax/Dulcolax (excellent) Procedure Description: Patient is here for routine screening colonoscopy. Informed consent was obtained and the patient was taken to the procedure area. The patient was placed in left lateral decubitus position on the procedure table. Timeout was performed. Anesthesia was induced. A lubricated colonoscope was inserted through the anus and passed to the cecum. The cecum was identified by the ile ocecal valve and the appendiceal orifice. The scope was then slowly withdrawn and the colonic and rectal mucosa examined. There are no colon or rectal mass lesions, polyps, AVMs. There is no inflam matory change. Sigmoid divertoculosis noted, moderate. The scope was retroflexed in the anorectal junction examined. Uncomplicated internal hemorrhoids present. Assessment and plan; Screening for colorectal cancer - normal exam Diverticulosis of sigmoid colon Normal screening colonoscopy. Average risk patient. Next screening colonoscopy will be due in 10 years. Fiber supplement recommended for diverticulosis.
[2025-07-28 09:25] VITALS: BP 116/80; PULSE 48; RESP 16; TEMP 36.3; O2SAT 99
--- NOTE | 2025-07-28 09:32 | W.ANESPOSTOP ---
Postoperative Evaluation Date, Time and Location Date Performed: 07/28/25 Time Performed: 09:32 Patient Location: Day Surgery Unit Vital Signs Most Recent Imported Vital Signs: Most Recent Vital Signs Temp Pulse Resp BP Pulse Ox 36.5 C 56 L 16 102/65 97 07/28/25 09:08 07/28/25 09:08 07/28/25 09:08 07/28/25 09:08 07/28/25 09:08 Pain Score Most Recent Pain Score: Most Recent Pain Score Pain Level 0 07/28/25 07:30 Assessment Mental Status: Awake (Alert & Oriented to Patient Baseline) Airway and Respiratory Function: Patent airway with normal (patient baseline) respiratory exam Cardiovascular Function: Hemodynamically Stable Hydration Status: Adequately Hydrated Nausea & Vomiting: No Nausea or Vomiting Pain: Pt. Denies Any Pain Peripheral Nerve Block: Patient did not receive a nerve block
== END 2025-07-28 09:52 | disposition home or self-care (01) ==
PROVIDERS: PCP Family Medicine; Visit Provider Surgery
PROC: 0DJD8ZZ Inspection of Lower Intestinal Tract, Via Natural or Artificial Opening Endoscopic (ICD-10-PCS; CPT 45378; principal; 2025-07-28 08:00)
DX: Z12.11 Encounter for screening for malignant neoplasm of colon (principal); Z12.12 Encounter for screening for malignant neoplasm of rectum; K57.30 Diverticulosis of large intestine without perforation or abscess without bleeding
CPT/HCPCS: 45378; J2704